=== PATIENT | male | born 1960 | race Caucasian/White ===

== ENCOUNTER 2024-03-27 08:13 | Day surgery (SDC) | payer OTHER ==
[2024-03-21 10:28] VITALS: BMI 36.2
[2024-03-27 08:30] VITALS: PULSE 66; RESP 18
[2024-03-27 09:32] VITALS: TEMP 97.5
[2024-03-27 09:58] VITALS: BP 124/56
== END 2024-03-27 09:58 | disposition home or self-care (01) ==
LOC: FASU-ENDO 08:13
PROVIDERS: ATTEND Internal Medicine Gastroenterology
PROC: 0DBL8ZX Excision of Transverse Colon, Via Natural or Artificial Opening Endoscopic, Diagnostic (ICD-10-PCS; principal; 2024-03-27 09:02)
DX: Z12.11 Encounter for screening for malignant neoplasm of colon (principal); D12.3 Benign neoplasm of transverse colon; K57.30 Diverticulosis of large intestine without perforation or abscess without bleeding; Z86.010 Personal history of colon polyps
CPT/HCPCS: 88305-TC